=== PATIENT | male | born 1955 | race Caucasian/White ===

== ENCOUNTER → 2024-07-31 | Outpatient (CLI) | payer OTHER, SELFPAY ==
[2024-07-31 08:32] LABS: Basophils # (Auto) 0.1 Thou/mm3 (0.0-0.2); Basophils % (Auto) 1 % (0-2.5); Eosinophils # (Auto) 0.5 Thou/mm3 (0.0-0.5); Eosinophils % (Auto) 5 % (0-10); Hematocrit 47.6 % (41.0-53.0); Hemoglobin 15.8 g/dL (13.5-16.0); Immature Granulocytes % (Auto) 0 % (0-0); Immature Granulocytes Auto 0.03 Thou/mm3 (0.00-0.00); Lymphocytes # (Auto) 3.3 Thou/mm3 (1.0-4.8); Lymphocytes % (Auto) 32 % (10-50); Mean Corpuscular HGB Conc 33.2 g/dl (31.0-37.0); Mean Corpuscular Hemoglobin 29.2 pg (25.0-35.0); Mean Corpuscular Volume 88 fL (80-100); Monocytes # (Auto) 0.6 Thou/mm3 (0.0-0.8); Monocytes % (Auto) 6 % (0-12); Neutrophils # (Auto) 5.9 Thou/mm3 (1.8-7.7); Neutrophils % (Auto) 57 % (37-80); Nucleated Red Blood Cell % 0 /100 WBC (0); Platelet Count 319 Thou/mm3 (140-440); RDW Standard Deviation 46.7 fL (35.1-43.9); Red Blood Count 5.42 Miln/mm3 (4.50-5.90); White Blood Count 10.4 Thou/mm3 (3.8-10.6)
[2024-07-31 08:42] LABS: Glucose Estimated Average 137 mg/dL (80-131); Hemoglobin A1C 6.4 % Hgb (4.8-6.0)
[2024-07-31 08:45] LABS: Prostate Specific Antigen 0.41 ng/mL (0-4.00)
[2024-07-31 08:50] LABS: Creatinine MALB Rnd Ur 41 mg/dL (30-125); Microalbumin Creat Ratio 88 mg/gCrea (<30); Microalbumin, Random Urine 36 mg/L (0-300)
[2024-07-31 08:54] LABS: Alanine Aminotransferase 23 U/L (10-49); Albumin/Globulin Ratio 2.5 (1.2-2.2); Alkaline Phosphatase 46 U/L (46-116); Anion Gap 7 (7-16); Aspartate Amino Transferase 16 U/L (0-34); BUN/Creatinine Ratio 13 Ratio (12-20); Bilirubin,Total 0.5 mg/dL (0.3-1.2); Blood Urea Nitrogen 15 mg/dL (9-23); Calcium 10.6 mg/dL (8.3-10.6); Calcium (Corrected) 10.6 mg/dL (8.5-10.1); Carbon Dioxide 28.3 mMol/L (20.0-31.0); Cardiac Risk Estimate 4.9 RATIO (4.0-6.7); Chloride 104 mMol/L (98-107); Cholesterol 182 mg/dL (132-200); Creatinine (Component) 1.2 mg/dL (0.6-1.3); Glucose 142 mg/dL (74-106); HDL Cholesterol 37 mg/dL (40-60); LDL Cholesterol,Calculated 112 mg/dL (0-130); Osmolality,Calculated 280 (275-295); Potassium 4.4 mMol/L (3.4-5.1); Sodium 139 mMol/L (136-145); Triglycerides 166 mg/dL (30-150); eGFR > 60 See Note
== END | disposition home or self-care (01) ==
PROVIDERS: PCP Internal Medicine; Referring Provider Internal Medicine; Visit Provider Urology
DX: E11.65 Type 2 diabetes mellitus with hyperglycemia (principal); E78.2 Mixed hyperlipidemia; N40.1 Benign prostatic hyperplasia with lower urinary tract symptoms
CPT/HCPCS: 36415; 80053; 80061; 82043; 82570; 83036; 84153; 85025

== ENCOUNTER → 2024-12-16 | Outpatient (BNVA) | payer OTHER, SELFPAY | END | disposition home or self-care (01) | PROVIDERS: PCP Internal Medicine; Referring Provider Internal Medicine; Visit Provider Urology | DX: N40.1 Benign prostatic hyperplasia with lower urinary tract symptoms (principal); N13.8 Other obstructive and reflux uropathy; E11.65 Type 2 diabetes mellitus with hyperglycemia; E78.2 Mixed hyperlipidemia; I10 Essential (primary) hypertension; E66.9 Obesity, unspecified; Z68.37 Body mass index [BMI] 37.0-37.9, adult; Z87.891 Personal history of nicotine dependence; K21.9 Gastro-esophageal reflux disease without esophagitis | CPT/HCPCS: 81003; 99212; G0463 ==

== ENCOUNTER → 2025-01-30 | Outpatient (CLI) | payer OTHER, SELFPAY ==
[2025-01-30 08:55] LABS: Glucose Estimated Average 137 mg/dL (80-131); Hemoglobin A1C 6.4 % Hgb (4.8-6.0)
[2025-01-30 08:56] LABS: Creatinine MALB Rnd Ur 47 mg/dL (30-125); Microalbumin Creat Ratio 70 mg/gCrea (<30); Microalbumin, Random Urine 33 mg/L (0-300)
[2025-01-30 09:05] LABS: Alanine Aminotransferase 19 U/L (10-49); Albumin, Serum 4.7 gm/dL (3.4-4.8); Alkaline Phosphatase 41 U/L (46-116); Anion Gap 10 (7-16); Aspartate Amino Transferase 15 U/L (0-34); BUN/Creatinine Ratio 13 Ratio (12-20); Bilirubin,Total 0.5 mg/dL (0.3-1.2); Blood Urea Nitrogen 16 mg/dL (9-23); Calcium 9.6 mg/dL (8.3-10.6); Calcium (Corrected) 9.6 mg/dL (8.5-10.1); Carbon Dioxide 26.2 mMol/L (20.0-31.0); Chloride 105 mMol/L (98-107); Creatinine (Component) 1.2 mg/dL (0.6-1.3); Globulin 2.3 gm/dL (2.3-3.5); Glucose 156 mg/dL (74-106); Osmolality,Calculated 285 (275-295); Potassium 3.9 mMol/L (3.4-5.1); Sodium 141 mMol/L (136-145); eGFR > 60 See Note
== END | disposition home or self-care (01) ==
LOC: COPL 06:45
PROVIDERS: PCP Internal Medicine; Referring Provider Internal Medicine; Visit Provider Internal Medicine
DX: I10 Essential (primary) hypertension (principal); E11.65 Type 2 diabetes mellitus with hyperglycemia
CPT/HCPCS: 36415; 80053; 82043; 82570; 83036

== ENCOUNTER → 2025-05-01 | Outpatient (CLI) | payer OTHER, SELFPAY ==
[2025-05-01 08:10] LABS: Basophils # (Auto) 0.1 Thou/mm3 (0.0-0.2); Basophils % (Auto) 1 % (0-2.5); Eosinophils # (Auto) 0.5 Thou/mm3 (0.0-0.5); Eosinophils % (Auto) 4 % (0-10); Hematocrit 46.3 % (41.0-53.0); Hemoglobin 16.0 g/dL (13.5-16.0); Immature Granulocytes Auto 0.04 Thou/mm3 (0.00-0.00); Lymphocytes # (Auto) 3.8 Thou/mm3 (1.0-4.8); Lymphocytes % (Auto) 36 % (10-50); Mean Corpuscular HGB Conc 34.6 g/dl (31.0-37.0); Mean Corpuscular Hemoglobin 30.4 pg (25.0-35.0); Mean Corpuscular Volume 88 fL (80-100); Monocytes # (Auto) 0.6 Thou/mm3 (0.0-0.8); Monocytes % (Auto) 6 % (0-12); Neutrophils # (Auto) 5.8 Thou/mm3 (1.8-7.7); Neutrophils % (Auto) 53 % (37-80); Nucleated Red Blood Cell # 0.00 Thou/mm3 (0.00-0.00); Nucleated Red Blood Cell % 0 /100 WBC (0); Platelet Count 353 Thou/mm3 (140-440); RDW Standard Deviation 44.6 fL (35.1-43.9); Red Blood Count 5.27 Miln/mm3 (4.50-5.90); White Blood Count 10.8 Thou/mm3 (3.8-10.6)
[2025-05-01 08:23] LABS: Alanine Aminotransferase 19 U/L (10-49); Albumin, Serum 4.7 gm/dL (3.4-4.8); Albumin/Globulin Ratio 2.2 (1.2-2.2); Alkaline Phosphatase 45 U/L (46-116); Anion Gap 7 (7-16); Aspartate Amino Transferase 16 U/L (0-34); BUN/Creatinine Ratio 12 Ratio (12-20); Bilirubin,Total 0.4 mg/dL (0.3-1.2); Blood Urea Nitrogen 14 mg/dL (9-23); Calcium 10.6 mg/dL (8.3-10.6); Calcium (Corrected) 10.6 mg/dL (8.5-10.1); Carbon Dioxide 28.3 mMol/L (20.0-31.0); Chloride 103 mMol/L (98-107); Creatinine (Component) 1.2 mg/dL (0.6-1.3); Globulin 2.1 gm/dL (2.3-3.5); Glucose 145 mg/dL (74-106); Osmolality,Calculated 279 (275-295); Potassium 4.1 mMol/L (3.4-5.1); Sodium 138 mMol/L (136-145); Total Protein 6.8 gm/dL (5.7-8.2); eGFR > 60 See Note
[2025-05-01 08:34] LABS: Creatinine MALB Rnd Ur 27 mg/dL (30-125); Microalbumin Creat Ratio 52 mg/gCrea (<30); Microalbumin, Random Urine 14 mg/L (0-300)
== END | disposition home or self-care (01) ==
LOC: COPL 06:41
PROVIDERS: PCP Internal Medicine; Referring Provider Internal Medicine; Visit Provider Internal Medicine
DX: E11.65 Type 2 diabetes mellitus with hyperglycemia (principal); I10 Essential (primary) hypertension
CPT/HCPCS: 36415; 80053; 82043; 82570; 85025

== ENCOUNTER → 2025-06-27 | Outpatient (CLI) | payer OTHER, SELFPAY ==
--- NOTE | 2025-06-27 07:15 | XR_ITS ---
EXAMINATION: Ultrasound abdominal aorta TECHNIQUE: Grayscale sonographic images abdominal aorta Date and time: June 27, 2025, 0717 hours INDICATIONS: CT chest examination 05/21/2020 for mild aneurysmal dilatation ascending thoracic aorta, 4.2 cm, smoking history 50 years FINDINGS: Proximal aorta transverse dimension 2.6 cm, mid aorta 2.2 cm, distal aorta 2.1 cm, right iliac 1.4 cm, left iliac 1.2 cm IMPRESSION: Negative for abdominal aortic aneurysm
== END | disposition home or self-care (01) ==
PROVIDERS: PCP Internal Medicine; Referring Provider Internal Medicine; Visit Provider Internal Medicine
DX: Z13.6 Encounter for screening for cardiovascular disorders (principal)
CPT/HCPCS: 76706

== ENCOUNTER → 2025-07-02 | Outpatient (CLI) | payer OTHER, SELFPAY ==
--- NOTE | 2025-07-02 08:30 | XR_ITS ---
Examination: CT chest, without intravenous contrast. Sagittal and coronal 2-D reconstructions. Exam date and time: July 02, 2025, 0833 hours, comparison 05/21/2024 INDICATIONS: Diagnosis chronic obstructive pulmonary disease, coughing congestion several months, pulmonary nodules on CT chest 05/21/2024 CTDI:vol (mGy) 19.5 DLP: (mGycm) 827 Technique: Multiple 3.0 mm axial sections of the chest to been obtained. Bone and lung density settings are obtained. Sagittal and coronal 2-D reconstructions have been obtained. Low dose protocols were performed. One or more of the following dose reduction techniques were used; automated exposure control, adjustment of the mA and/or KV according to patient size, use of iterative reconstruction technique. Findings: Thoracic aortic calcification no aneurysmal dilatation Pulmonary artery segments are not enlarged Significant calcification left main and left anterior descending coronary arteries Mild enlargement cardiac contour Stable pulmonary nodules No new pulmonary nodules No pneumonia or pulmonary edema No visualized liver splenic lesion No gallstones No pancreatic or adrenal mass Prominent osteopenia IMPRESSION: Significant calcification left main left and descending coronary arteries Stable pulmonary nodules compared with 05/21/2024, no new pulmonary nodules
== END | disposition home or self-care (01) ==
LOC: CCTX 08:25
PROVIDERS: PCP Internal Medicine; Referring Provider Internal Medicine; Visit Provider Internal Medicine
DX: I25.10 Atherosclerotic heart disease of native coronary artery without angina pectoris (principal); R91.8 Other nonspecific abnormal finding of lung field
CPT/HCPCS: 71250

== ENCOUNTER 2025-08-29 06:34 | Day surgery (SDC) | payer OTHER, SELFPAY ==
[2025-08-27 15:25] VITALS: BMI 36.9
--- NOTE | 2025-08-28 07:00 | EKG_ITS ---
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
[2025-08-28 11:06] LABS: Basophils # (Auto) 0.1 Thou/mm3 (0.0-0.2); Basophils % (Auto) 1 % (0-2.5); Eosinophils # (Auto) 0.5 Thou/mm3 (0.0-0.5); Eosinophils % (Auto) 4 % (0-10); Hematocrit 47.8 % (41.0-53.0); Hemoglobin 16.5 g/dL (13.5-16.0); Immature Granulocytes Auto 0.04 Thou/mm3 (0.00-0.00); Lymphocytes # (Auto) 3.7 Thou/mm3 (1.0-4.8); Lymphocytes % (Auto) 33 % (10-50); Mean Corpuscular HGB Conc 34.5 g/dl (31.0-37.0); Mean Corpuscular Hemoglobin 29.8 pg (25.0-35.0); Mean Corpuscular Volume 86 fL (80-100); Monocytes # (Auto) 0.8 Thou/mm3 (0.0-0.8); Monocytes % (Auto) 7 % (0-12); Neutrophils # (Auto) 6.2 Thou/mm3 (1.8-7.7); Neutrophils % (Auto) 55 % (37-80); Nucleated Red Blood Cell # 0.00 Thou/mm3 (0.00-0.00); Nucleated Red Blood Cell % 0 /100 WBC (0); Platelet Count 337 Thou/mm3 (140-440); RDW Standard Deviation 43.8 fL (35.1-43.9); Red Blood Count 5.54 Miln/mm3 (4.50-5.90); White Blood Count 11.3 Thou/mm3 (3.8-10.6)
[2025-08-28 11:15] LABS: INR 1.0 (0.9-1.3); Partial Thromboplastin Time 29.6 Seconds (22.0-36.0); Prothrombin Time 10.5 Seconds (9.0-12.2)
[2025-08-28 11:26] LABS: Anion Gap 9 (7-16); BUN/Creatinine Ratio 12 Ratio (12-20); Blood Urea Nitrogen 14 mg/dL (9-23); Calcium 10.5 mg/dL (8.3-10.6); Carbon Dioxide 30.0 mMol/L (20.0-31.0); Chloride 101 mMol/L (98-107); Creatinine (Component) 1.2 mg/dL (0.6-1.3); Estimated Creatinine Clearance 71.1 mL/min (>60); Glucose 147 mg/dL (74-106); Osmolality,Calculated 282 (275-295); Potassium 4.0 mMol/L (3.4-5.1); Sodium 140 mMol/L (136-145); eGFR > 60 See Note
[2025-08-29] VITALS (14 sets, daily range): BP systolic 133–175; BP diastolic 69–97; PULSE 70–108; RESP 13–20; TEMP 36.4; O2SAT 94–98
--- NOTE | 2025-08-29 07:30 | ECHO_ITS ---
Patient Info Name: Tayo Garcia Age: 70 yrs Admit Date: 08/29/2025 Exam Date: 08/29/2025 7:15 AM Patient Status: O Site: [facility] Ht: 175 cm Wt: 113 kg BSA: 2.39 m2 Gender: Male : 1955 Exam Type: CCL heart cath LT ventricle Referring Physician(s): Denis Reynaga Procedure Staff Name: Denis Reynaga Title: Role: Sales Development Specialist Name: Rafa Yoder Title: JOE Role: Tool Radial Drill Press Set Up Operator Name: Adriane Pearl Title: Tech Role: Monitor Name: Hira Payan Title: Fco Amaya Role: Scrub Name: David Best Title: JOE Role: Sedation Nurse Procedure(s) Code: 18392040 Description: CONSCIOUS SEDATION INITIAL Code: 50639142 Description: ACT ACTIVATED CLOTTING TIME Code: [id number] Description: [facility] W/VENTRICULOGRAM/PTCA Code: 43127324 Description: DRUG ELUTING STENT Code: 98709310 Description: CONSCIOUS SEDATION ADDITIONAL Code: [id number] Description: CONSCIOUS SEDATION ADDITIONAL Exam Priority: R Diagnostic Cath Status: Elective Diagnostic Findings * Coronary angiography shows no disease in the left main artery, no disease in the left anterior descending artery, no disease in the circumflex artery and severe disease in the right coronary artery. PCI Status: Elective PCI LVEF Assessed: Yes PCI Indication: New Onset Angina <= 2 months Interventional Findings * Successful drug eluting stent deployment on pRCA artery. * A 2.50 mm x 22.00 mm drug eluting stent was deployed in the pRCA with a maximum of 14.00 donnie for 15 s. Syntax Score: Intermediate Cath Hemodynamic Data Pressures Phase:Baseline AO : 122 mmHg/66 mmHg(90 mmHg) @ 8:17:55 AM 69 mmHg/47 mmHg(55 mmHg) @ 8:41:16 AM LV : 108 mmHg/6 mmHg/20 mmHg @ 8:17:50 AM AO HR: 107 bpm @ 8:17:55 AM 78 bpm @ 8:41:16 AM LV HR: 79 bpm @ 8:17:50 AM LV DP/DT: 1,833 mmHg/s @ 8:17:50 AM Procedural Details Infusor 500ml pressure bag administered. 1000 ml NS with 5000 units Heparin administered. 500ml NS with 2500 units Heparin administered. No Known Drug Allergies. Patient prepped and draped in usual sterile technique. Time out taken. Patient identity and surgery site confirmed. Fire risk assessment and proper safety precautions in place. Medication verified by sedation nurse with circulating nurse. Medication verified by sedation nurse with circulating nurse. 1% Lidocaine Administered To RT Wrist. Percutaneous Puncture To RRA. Pierce Sheath 6fr. Pierce Sheath 6fr sheath inserted into RRA. Heparin IA 3,000 units. Verapamil IA 2.5 mg. TIG 4.5 / 5FR. 180cm Baby J Wire 180. TIG 4.5 Catheter Inserted by Guidewire (RADIAL). Guidewire Removed. LV Gram Performed. Pullback from LV to AO. Catheter Repositioned. Left Coronary System Injected and Multiple Views Taken. Catheter Repositioned. Right Coronary System Injected and Multiple Views Taken. Metoprolol IV 5 mg. Guidewire/ 0.035/ 260cm/ 3mm J (Exchange). Guidewire Inserted. Catheter Removed. Heparin IV 8,000 units. 6 FR JR 4 Launcher Guide Catheter. Guide Catheter Inserted. Guidewire removed. Essential Kit. Indeflator Kit. Guardian Hemo Valve. Brilinta PO 180 mg. Guidewire Inserted. Catheter Removed. 5FR AL 1. Guide Catheter Inserted. ACT: (Reference Range 89-169 seconds)= 350. Guidewire removed. Runthrough NS. Interventional Guidewire Inserted. Coronary Artery Visualized. 2.25mm x 15mm Balloon. Balloon Catheter Inserted. Balloon inflated for 9 sec @ 8 donnie in the proximla RCA. Balloon inflated for 11 sec @ 8 donnie in the proximla RCA. Balloon Catheter Removed. Post Injection Of Coronaries. 2.50 x 22 mm [place] Rx Stent. Stent Catheter inserted. Stent deployed for 13 sec @ 12 donnie in the proximla RCA. Stent deployed for 17 sec @ 14 donnie in the proximla RCA. Interventional wire and Guide Catheter Removed. Sheath Pulled & Pressure Applied with Closure Device. TR BAND in Place. TR band Large with inflator. HEMOSTASIS Obtained. No complications. Post Procedure Teaching Performed. Patient Verbalizes Understanding Of Teaching. Patient Transferred to Cardiac Assistant Financial Accountant Recovery. Complication Findings No complications. X-ray Summary Total Time (min): 8.92 Interventional Time (min): --- Diagnostic Time (min): --- Total Dose (mGy): --- Air Kerma (mGy): --- DAP (cGy*cm2): --- Contrast Contrast: ISOVUE 370 Amount (mL): 95 ml Report Signatures Interventional Finalized by Denis Reynaga on 08/30/2025 05:50 PM Diagnostic Finalized by Denis Reynaga on 08/30/2025 05:50 PM
[2025-08-29] MEDS: SODIUM CHLORIDE 0.45 % 500 ML 125 ML IV (08:45)
[2025-08-29 08:58] LABS: ACT (CATH LAB ONLY) 350.0 Seconds (89-169)
--- NOTE | 2025-08-30 17:41 | ESOP_ITS ---
RE: LLUVIA CHUN : 1955 DATE OF OPERATION: 08/29/2025 PROCEDURES PERFORMED: 1. Diagnostic left heart cardiac catheterization, selective coronary angiogram, left ventricular angiogram. CPT 74771. 2. PCI and PTCA stent placement proximal right coronary artery with placement of drug-eluting stent, 2.5 x 22 mm Medtronic [place] drug-eluting stent. Preprocedure stenosis 99%, postprocedure stenosis 0%. Preprocedure DONNA flow 1, postprocedure DONNA flow 3. CPT 05771. 3. Ultrasound-guided access right radial artery. 4. Conscious sedation 30 minute duration. DIAGNOSES: 1. Coronary artery disease. 2. Angina pectoris. 3. Abnormal stress test. HISTORY AND INDICATIONS: The patient is a 70-year-old male with history of hypertension, hypercholesterolemia, recurrent chest pain with chest pressure. Cardiac stress test was abnormal showing inferolateral ischemia, hence coronary angiogram was recommended since the patient is a candidate for intervention and revascularization. PROCEDURE DETAILS: The patient was brought to the cardiac catheterization laboratory. He was given 3 mg of Versed and 50 mcg of fentanyl for conscious sedation. Right radial approach was taken. Right radial artery was cannulated with micropuncture technique. A 6- [place] Glidesheath was introduced. Selective right and left coronary angiogram performed by 5- [place] TIG 4 diagnostic catheter. Left heart catheterization and LV angiogram were performed by 5- [place] TIG 4 diagnostic catheter. The patient tolerated the procedure well, no complication. Diagnostic procedure showed following findings: Right coronary artery is a large and codominant, gives off PDA branch, and proximal right coronary artery showed evidence of 99% stenosis with DONNA 1 flow, culprit lesion. Left coronary system: Left main coronary is normal. Left anterior descending artery showed short left main coronary artery bifurcating into LAD and circumflex arteries and left anterior descending artery showed no significant stenosis. Diagonal branch showed mild plaque, no significant stenosis. Circumflex artery is large, codominant, gives off posterolateral branch, appears normal. Obtuse marginal branch is normal. Left ventricular pressure recorded to be 110/10, aortic pressure 110/70. No gradient across the aortic valve. Left ventricular angiogram showed normal left ventricular wall motion, ejection fraction 60%. Following diagnostic procedure, intervention was undertaken. The patient was given heparin 7000 units. ACT was therapeutic. Aspirin and Brilinta loading dose was given to the patient. PCI was then performed. Initially, a FR4 diagnostic guiding catheter could not cannulate the right coronary artery, hence I used the AL1 6-[place] guiding catheter to cannulate the right coronary artery. A 0.014 runthrough guidewire was used to cross the lesion successfully. Predilation was performed with 2.25 mm balloon. Subsequently, 2.5 x 22 mm Medtronic [place] drug- eluting stent was deployed successfully with 14 atmospheric pressures with excellent angiographic result. The patient tolerated the procedure well, no complications. Final angiogram showed widely patent right coronary artery, no residual stenosis. DONNA flow is 3. FINDINGS: 1. Single-vessel coronary artery disease with evidence of 99% stenosis of the proximal RCA underwent successful PCI and stent placement of the proximal RCA. 2. Normal left ventricular function. RECOMMENDATION: The patient will continue on aspirin and Brilinta, dual antiplatelet drug therapy for 12 months. DT: 17:12:42 TT: 17:40:00 Ref: [id number] - TID: [id number] MTDD
== END 2025-08-29 12:41 | disposition home or self-care (01) ==
PROVIDERS: PCP Internal Medicine; Referring Provider Internal Medicine Cardiovascular Disease; Visit Provider Internal Medicine Cardiovascular Disease
PROC: (CPT 93458; principal; 2025-08-29 07:30)
DX: I25.118 Atherosclerotic heart disease of native coronary artery with other forms of angina pectoris (principal); E11.9 Type 2 diabetes mellitus without complications; J44.9 Chronic obstructive pulmonary disease, unspecified; E78.00 Pure hypercholesterolemia, unspecified; Z79.82 Long term (current) use of aspirin; Z79.899 Other long term (current) drug therapy; Z79.84 Long term (current) use of oral hypoglycemic drugs; Z01.810 Encounter for preprocedural cardiovascular examination
CPT/HCPCS: 93458; C9600; 36415; 80048; 85025; 85347; 85610; 85730; 93005; 99152; 99153; A4649; C1725; C1769; C1874; C1887; C1894; J0153; J0168; J0282; J0461; J1643; J2250; J2312; J2371; J3010; J3490; J7030; J7612; Q9967; A9270; J2305

== ENCOUNTER → 2025-09-09 | Outpatient (CLI) | payer OTHER, SELFPAY ==
[2025-09-09 08:39] LABS: Glucose Estimated Average 148 mg/dL (80-131); Hemoglobin A1C 6.8 % Hgb (4.8-6.0)
[2025-09-09 08:41] LABS: Basophils # (Auto) 0.1 Thou/mm3 (0.0-0.2); Basophils % (Auto) 1 % (0-2.5); Eosinophils # (Auto) 0.5 Thou/mm3 (0.0-0.5); Eosinophils % (Auto) 4 % (0-10); Hematocrit 46.5 % (41.0-53.0); Hemoglobin 15.7 g/dL (13.5-16.0); Immature Granulocytes Auto 0.04 Thou/mm3 (0.00-0.00); Lymphocytes # (Auto) 3.6 Thou/mm3 (1.0-4.8); Lymphocytes % (Auto) 33 % (10-50); Mean Corpuscular HGB Conc 33.8 g/dl (31.0-37.0); Mean Corpuscular Hemoglobin 29.3 pg (25.0-35.0); Mean Corpuscular Volume 87 fL (80-100); Monocytes # (Auto) 0.8 Thou/mm3 (0.0-0.8); Monocytes % (Auto) 7 % (0-12); Neutrophils # (Auto) 6.1 Thou/mm3 (1.8-7.7); Neutrophils % (Auto) 55 % (37-80); Nucleated Red Blood Cell # 0.00 Thou/mm3 (0.00-0.00); Nucleated Red Blood Cell % 0 /100 WBC (0); Platelet Count 361 Thou/mm3 (140-440); RDW Standard Deviation 43.7 fL (35.1-43.9); Red Blood Count 5.35 Miln/mm3 (4.50-5.90); White Blood Count 11.1 Thou/mm3 (3.8-10.6)
[2025-09-09 08:42] LABS: Alanine Aminotransferase 20 U/L (10-49); Albumin, Serum 5.0 gm/dL (3.4-4.8); Albumin/Globulin Ratio 1.9 (1.2-2.2); Alkaline Phosphatase 52 U/L (46-116); Anion Gap 11 (7-16); Aspartate Amino Transferase 18 U/L (0-34); BUN/Creatinine Ratio 10 Ratio (12-20); Bilirubin,Total 0.5 mg/dL (0.3-1.2); Blood Urea Nitrogen 12 mg/dL (9-23); Calcium 9.8 mg/dL (8.3-10.6); Calcium (Corrected) 9.8 mg/dL (8.5-10.1); Carbon Dioxide 25.9 mMol/L (20.0-31.0); Cardiac Risk Estimate 4.7 RATIO (4.0-6.7); Chloride 104 mMol/L (98-107); Cholesterol 165 mg/dL (132-200); Creatinine (Component) 1.2 mg/dL (0.6-1.3); Globulin 2.6 gm/dL (2.3-3.5); Glucose 167 mg/dL (74-106); HDL Cholesterol 35 mg/dL (40-60); LDL Cholesterol,Calculated 76 mg/dL (0-130); Osmolality,Calculated 284 (275-295); Potassium 3.8 mMol/L (3.4-5.1); Sodium 141 mMol/L (136-145); Thyroid Stimulating Hormone 2.43 uIU/mL (0.55-4.78); Total Protein 7.6 gm/dL (5.7-8.2); Triglycerides 271 mg/dL (30-150); eGFR > 60 See Note
[2025-09-09 08:49] LABS: Prostate Specific Antigen 0.26 ng/mL (0-4.00)
[2025-09-09 09:05] LABS: Creatinine MALB Rnd Ur 62 mg/dL (30-125); Microalbumin Creat Ratio 74 mg/gCrea (<30); Microalbumin, Random Urine 46 mg/L (0-300)
== END | disposition home or self-care (01) ==
LOC: COPL 06:40
PROVIDERS: PCP Internal Medicine; Referring Provider Urology; Visit Provider Internal Medicine
DX: E11.65 Type 2 diabetes mellitus with hyperglycemia (principal); I10 Essential (primary) hypertension; E78.2 Mixed hyperlipidemia; N40.1 Benign prostatic hyperplasia with lower urinary tract symptoms; J44.9 Chronic obstructive pulmonary disease, unspecified
CPT/HCPCS: 36415; 80053; 80061; 82043; 82570; 83036; 84153; 84443; 85025